=== PATIENT | female | born 1995 | race African-American/Black ===

== ENCOUNTER 2018-11-15 21:47 | Emergency (ER) | payer MEDICAID ==
[~2018-11-15] VITALS: Ht 162.6 cm; Wt 50.0 kg
[2018-11-16] MEDS ORDERED: SODIUM CHLORIDE 0.9% 1,000 ML IV ONE (00:07)
[2018-11-16] MEDS ORDERED: IBUPROFEN 600MG TABLET PO STA (00:07)
[2018-11-16 00:35] LABS: HEMATOCRIT. 41.5 % (36.0-48.0); HEMOGLOBIN. 13.8 g/dL (12.0-16.0); MEAN CORPUSCULAR HEMOGLOBIN 28.2 pg (28.0-32.0); MEAN CORPUSCULAR VOLUME 85.3 fL (81.0-99.0); MEAN PLATELET VOLUME 8.6 fl (7.4-10.4); PLATELET 211 x1000/uL (130-400); RED BLOOD CELL COUNT 4.87 mill/uL (4.2-5.4); RED CELL DISTRIBUTION WIDTH 14.7 % (11.6-14.6)
[2018-11-16 00:40] LABS: CHLORIDE 103 mEq/L (98-107)
[2018-11-16 00:52] LABS: CLARITY URINE CLEAR (CLEAR); COLOR URINE YELLOW (YELLOW); KETONES URINE TRACE (NEGATIVE); LEUKOCYTE ESTERASE URINE 2+ (NEGATIVE); NITRITE URINE NEGATIVE (NEGATIVE); OCCULT BLOOD URINE NEGATIVE (NEGATIVE); PH URINE 6.5 (4.5-8.0); PROTEIN URINE NEGATIVE (NEGATIVE); SPECIFIC GRAVITY URINE 1.026 (1.005-1.030)
[2018-11-16 02:42] VITALS: BP 113/66
[2018-11-16 03:10] LABS: PLATELET ESTIMATE NORMAL
== END 2018-11-16 02:51 | disposition home or self-care (01) ==
LOC: ER 21:47
DX: R55 Syncope and collapse (principal); N30.00 Acute cystitis without hematuria
CPT/HCPCS: 36415; 80053; 81003; 81025; 85025; 87086; 93005; 96360; 99284; J7030; Z7610